=== PATIENT | male | born 1970 ===

== ENCOUNTER 2022-04-30 02:50 | Emergency (ER) | payer SELFPAY ==
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
[2022-04-30] MEDS ORDERED: SODIUM BICARB 8.4% 50 MEQ/50 ML SYRINGE IV ONE (11:53)
== END 2022-04-30 07:00 ==
LOC: ED 02:50
DX: I46.9 Cardiac arrest, cause unspecified (principal)
CPT/HCPCS: 92950